=== PATIENT | male | born 1975 | race Caucasian/White ===

== ENCOUNTER 2018-07-03 06:39 | Emergency (ER) | payer BC ==
[~2018-07-03] VITALS: Ht 180.3 cm; Wt 108.9 kg
[2018-07-03 06:44] VITALS: BP_SYST 157
[2018-07-03] MEDS ORDERED: IBUPROFEN 600 MG TABLET PO ONE (07:00)
[2018-07-03] MEDS ORDERED: ACETAMINOPHEN 500 MG TABLET PO ONE (08:30)
[2018-07-03 08:56] VITALS: BP_SYST 157
== END 2018-07-03 08:56 | disposition home or self-care (01) ==
LOC: SED 06:39
DX: S83.92XA Sprain of unspecified site of left knee, initial encounter (principal); S13.4XXA Sprain of ligaments of cervical spine, initial encounter; S09.90XA Unspecified injury of head, initial encounter; V29.9XXA Motorcycle rider (driver) (passenger) injured in unspecified traffic accident, initial encounter; Y93.89 Activity, other specified; Y92.410 Unspecified street and highway as the place of occurrence of the external cause; Y99.8 Other external cause status
CPT/HCPCS: 70450-TC; 72125-TC; 73564; 99284